=== PATIENT | female | born 1960 | race Caucasian/White ===

== ENCOUNTER → 2025-01-26 | Outpatient (CLI) | payer OTHER ==
[2025-01-26 08:42] VITALS: TEMP 99.1
[2025-01-26 09:38] VITALS: BP 124/82; O2SAT 100
== END ==
LOC: M WHCPRO 08:19
PROVIDERS: ATTEND Family Medicine
DX: R92.8 Other abnormal and inconclusive findings on diagnostic imaging of breast (principal); N63.21 Unspecified lump in the left breast, upper outer quadrant